=== PATIENT | female | born 1980 | race Two or more races ===

== ENCOUNTER 2019-11-28 08:39 | Emergency (ER) | payer SELFPAY ==
[~2019-11-28] VITALS: Ht 162.6 cm; Wt 70.8 kg
[2019-11-28] MEDS ORDERED: Omnipaque-300 100ml vial INJ ONE (09:00)
[2019-11-28] MEDS ORDERED: dexAMETHasone 10mg/ml Inj IV ONE (09:00)
[2019-11-28] MEDS ORDERED: cefTRIAXone 2 GM in NS 55 ML IVPB ONE (09:00)
[2019-11-28] MEDS ORDERED: Clindamycin 600mg 50 ML IVPB ONE (09:00)
--- NOTE | 2019-11-28 09:00 | Emergency Room Report ---
History of Present Illness General Chief Complaint: Earache Source: Patient Present Illness HPI Disclaimer: Please note that this report is being documented using DRAGON technology. This can lead to erroneous entry secondary to incorrect interpretation by the dictating instrument. HPI: 36-year-old female presents for evaluation of right-sided ear pain. Patient reports 2 days of pain in the right ear without changes in hearing, vertigo, fever or chills. She now notes tenderness over the right side of the jaw extending down to the submandibular region on the right side. Pain with opening her jaw. Denies difficulty swallowing or tolerating her secretions. Denies wheezing, stridor, difficulty breathing. Denies recent fever or chills. Denies nausea, vomiting, diarrhea, chest pain, cough PMH: Denies PSH: Reviewed Allergies: Denied Social Hx: Denied drug or alcohol abuse Allergies: Coded Allergies: No Known Allergies (Unverified , 11/28/19) COVID-19 Screening Contact w/high risk pt: No Recent Travel to affected area: No Experienced COVID-19 symptoms?: No COVID-19 Testing performed [employer]: No Patient History Last Menstrual Period: 11/22/19 Now: No Nursing Documentation-PMH Past Medical History: No Stated History Review of Systems All Other Systems: negative except mentioned in HPI Physical Exam Vital Signs Date Time Temp Pulse Resp B/P (MAP) Pulse Ox O2 Delivery O2 Flow Rate FiO2 11/28/19 08:41 99.7 92 20 142/91 (108) 97 General: Awake and alert, appears mildly uncomfortable HEENT: NC/AT. EOMI. PERRLA. Tympanic membranes are pearly simon, nonbulging with clear landmarks. Slight hyperemia in the right external canal but no edema no exudate. Left external auditory canal is normal in appearance without edema, erythema or drainage. The uvula is slightly deviated to the left with swelling of the right peritonsillar region. The right tonsil is erythematous with mild exudate. Pharynx is erythematous. No tenderness over the parotids. No trismus. Tolerating secretions. Speaking clearly and without muffled voice. Neck: Tender palpation with palpable mass in the right submandibular region. No overlying skin changes. Cardiovascular: RRR. S1 and S2 normal. No murmur appreciated Resp: Normal work of breathing. No cough, wheezing or crackles appreciated Abdomen: Abdomen is soft, nondistended. Nontender Skin: Intact. No abrasions, laceration or rash over the exposed skin MSK: Normal tone and bulk. Moving all extremities. No obvious deformity. Neuro: Awake and alert. Mentating appropriately. Procedures Critical Care Time Critical Care Time Total critical care time: Approximately 31 minutes Due to a high probability of clinically significant, life threatening deterioration, the patient required the highest level of preparedness to intervene emergently and I personally spent this critical care time directly and personally managing the patient. This critical care time included obtaining a history, examining the patient, pulse oximetry, ordering and reviewing studies , ordering treatments, evaluating response to treatment and updating management plan as needed, frequent reassessment and discussion with other providers as well as arranging for ultimate disposition. This critical to care time was performed to assess and manage the high probability of life-threatening deterioration that could result in multiorgan failure. This critical care time is separate from the separately billable procedures and treating other patients. Incision and Drainage Incision and Drainage : Site: Right peritonsillar abscess Wound Location: other Additional Procedure Procedure Narrative Procedure note for aspiration of peritonsillar abscess. Location: Right peritonsillar abscess Procedure: Patient was placed on monitor given suction to accommodate her secretions. Hurricaine spray was used as a topical anesthetic after which 2 cc of 1% lidocaine with epinephrine was used for local anesthesia. An 18-gauge with the protective covering cut to 1 cm was inserted into the superior pillar of the right tonsil aspirate approximately 3 cc of foul-smelling purulent material with mild blood streaking. No pulsatile mass. No significant bleeding. Patient tolerated the procedure well. Sample sent for culture and Gram stain. No complications Signature: Electronically signed by Dr. William Hancock Medical Decision Making Diagnostic Impression: Primary Impression: Pharyngitis Additional Impression: Peritonsillar abscess ER Course 39-year-old female presenting for evaluation of right-sided ear and neck pain for the past 2 days. She arrives afebrile though appears uncomfortable. No trismus but there is right-sided peritonsillar swelling and mild uvular deviation concerning for peritonsillar abscess. Also on differential is pharyngitis, laryngitis, proctitis, Ludewig's angina to name a few. Will obtain cultures, broad labs, CT scan to further evaluate. Will treat empirically with IV antibiotics and dexamethasone. 1250: Labs show a slight increase in white count at 14.2 with a neutrophil predominance. Chemistry lactic acid within normal limits. No evidence of sepsis at this time. CT scan confirmed peritonsillar abscess and signs of pharyngitis. Aspiration was performed by me at bedside. Please see separate procedure section of this note for full details. Tolerate procedure well without complications. Airway is patent and pain is improving. Patient will be monitored in the ED and then p.o. challenged. Will discharge home on Augmentin for 10 days. Discussed reasons to return to the emergency department. She understands and agrees with this treatment plan. Laboratory Tests Test 11/28/19 09:00 White Blood Count 14.2 K/UL (4.8-10.8) H Red Blood Count 4.64 M/UL (4.20-5.40) Hemoglobin 14.0 G/DL (12.0-16.0) Hematocrit 43.1 % (37.0-47.0) Mean Corpuscular Volume 93 FL (80-99) Mean Corpuscular Hemoglobin 30.1 PG (27.0-31.0) Mean Corpuscular Hemoglobin Concent 32.3 G/DL (32.0-36.0) Red Cell Distribution Width 11.2 % (11.6-14.8) L Platelet Count 338 K/UL (150-450) Mean Platelet Volume 6.7 FL (6.5-10.1) Neutrophils (%) (Auto) 83.7 % (45.0-75.0) H Lymphocytes (%) (Auto) 9.3 % (20.0-45.0) L Monocytes (%) (Auto) 6.3 % (1.0-10.0) Eosinophils (%) (Auto) 0.4 % (0.0-3.0) Basophils (%) (Auto) 0.4 % (0.0-2.0) Urine HCG, Qualitative Negative (NEGATIVE) Sodium Level 140 MMOL/L (136-145) Potassium Level 3.6 MMOL/L (3.5-5.1) Chloride Level 104 MMOL/L (98-107) Carbon Dioxide Level 26 MMOL/L (21-32) Anion Gap 10 mmol/L (5-15) Blood Urea Nitrogen 11 mg/dL (7-18) Creatinine 0.9 MG/DL (0.55-1.30) Estimated Glomerular Filtration Rate > 60 mL/min (>60) Glucose Level 101 MG/DL (74-106) Lactic Acid Level 0.70 mmol/L (0.4-2.0) Calcium Level 9.3 MG/DL (8.5-10.1) CT/MRI/US Diagnostic Results CT/MRI/US Diagnostic Results : Impression CLINICAL HISTORY: right ear and worst on right jaw for last 2 days. per pt, unable to chew but ok to drink fluid. denies any breathing problem. able to open her mouth. no fever at this time. TECHNIQUE: Axial computed tomography images of the neck with intravenous contrast. CTDI is 6.9 mGy and DLP is 198.2 mGy-cm. One or more of the following dose reduction techniques were used: automated exposure control, adjustment of the mA and/or kV according to patient size, use of iterative reconstruction technique. COMPARISON: No relevant prior studies available. FINDINGS: Oropharynx: 2 x 3.2 x 3.7 cm fluid collection with rim enhancement in the right tonsils consistent with a tonsillar abscess and tonsillitis. Swelling extends superiorly to the level of the nasopharynx and right eustachian tube. Moderate effacement of the pharynx. Hypopharynx: Right pharyngeal soft tissue thickening extending to the right epiglottis.. Larynx: Unremarkable. Trachea: Unremarkable. Retropharyngeal space: Unremarkable. Submandibular/parotid glands: Slight prominence of the right submandibular duct. Parotid glands unremarkable. Thyroid: Unremarkable. No enlarged or calcified nodules. Bones/joints: No acute fracture. Soft tissues: Unremarkable. Vasculature: No acute findings. Lymph nodes: Enhancing slightly prominent right cervical lymph nodes. Sinuses: Mild ethmoid sinus mucosal thickening. Lung apices: Unremarkable as visualized. IMPRESSION: 1. 2 x 3.2 x 3.7 cm fluid collection with rim enhancement in the right tonsils consistent with a tonsillar abscess and tonsillitis. Swelling extends superiorly to the level of the nasopharynx and right eustachian tube. Moderate effacement of the pharynx. 2. Right pharyngeal soft tissue thickening extending to the right epiglottis. Airway patent. <MYCVCSECTION> Communications: 11/28/19 11:41 Verify Receipt Verified receipt with Leatha, given to Karissa FORD on 11/27 11:41 (-07:00) Dictated By: JANET TURNER M.D. Electronically Signed By: JANET TURNER M.D. Signed Date/Time 11/28/19 1123 CC: William Hancock MD Last Vital Signs Date Time Temp Pulse Resp B/P (MAP) Pulse Ox O2 Delivery O2 Flow Rate FiO2 11/28/19 08:41 99.7 92 20 142/91 (108) 97 Disposition: HOME, SELF-CARE Condition: Stable Scripts Ibuprofen* (MOTRIN*) 600 Mg Tablet 600 MG ORAL Q8H PRN for FOR PAIN, #30 TAB 0 Refills Prov: William Hancock MD 11/28/19 Amoxicillin/Potassium Clav 875-125* (AUGMENTIN 875-125 TABLET*) 1 Each Tablet 1 TAB ORAL TWICE A DAY for 10 Days, #20 TAB Prov: William Hancock MD 11/28/19 William Hancock MD Nov 28, 2019 09:00
--- NOTE | 2019-11-28 09:00 | NUR ---
ED Nurse Note: pt walked in to ED due to pain on right ear and worst on right jaw for last 2 days. per pt, unable to chew but ok to drink fluid. denies any breathing problem. able to open her mouth. no fever at this time. AAO x4. respirations even and non-labored noted. no skin problem. ambulatory with steady gait. lab sent. will give meds as ordered. will cont to monitor.
[2019-11-28] MEDS ORDERED: Morphine Sulfate 2mg/ml Inj(IV/IM USE ONLY) IVP ONE (09:15)
[2019-11-28 09:21] LABS: BASOPHILS % (AUTO) 0.4 % (0.0-2.0); EOSINOPHILS % (AUTO) 0.4 % (0.0-3.0); HEMATOCRIT 43.1 % (37.0-47.0); LYMPHOCYTES % (AUTO) 9.3 % (20.0-45.0); MEAN CORPUSCULAR VOLUME 93 FL (80-99); MONOCYTES % (AUTO) 6.3 % (1.0-10.0); NEUTROPHILS % (AUTO) 83.7 % (45.0-75.0); PLATELET COUNT 338 K/UL (150-450); RED BLOOD COUNT 4.64 M/UL (4.20-5.40); RED CELL DISTRIBUTION WIDTH 11.2 % (11.6-14.8); WHITE BLOOD COUNT 14.2 K/UL (4.8-10.8)
[2019-11-28 09:27] LABS: ANION GAP 10 mmol/L (5-15); BLOOD UREA NITROGEN 11 mg/dL (7-18); CALCIUM 9.3 MG/DL (8.5-10.1); CARBON DIOXIDE 26 MMOL/L (21-32); CHLORIDE 104 MMOL/L (98-107); CREATININE 0.9 MG/DL (0.55-1.30); POTASSIUM 3.6 MMOL/L (3.5-5.1); SODIUM 140 MMOL/L (136-145)
--- NOTE | 2019-11-28 09:46 | NUR ---
ED Nurse Note: Patient taken to CT scan in wheelchair.
--- NOTE | 2019-11-28 09:56 | NUR ---
ED Nurse Note: Patient returned from CT scan. IV site to LAC remained intact without redness, swelling or tenderness.
[2019-11-28 10:03] VITALS: BP 106/69
[2019-11-28] MEDS ORDERED: Lidocaine 1% 10mg/ml/Epi 0.005mg/ml 30ml vial INJ ONE (10:15)
[2019-11-28] MEDS ORDERED: Hurricaine 20% Spray ORO ONE ×2 (10:15→10:17)
[2019-11-28] MEDS ORDERED: Lidocaine 1% Plain 30 ml INJ ONE (10:17)
[2019-11-28] MEDS ORDERED: Lidocaine 1% 10mg/ml/EPI 0.01mg/ml 30ml INJ ONE (10:20)
--- NOTE | 2019-11-28 10:29 | NUR ---
ED Nurse Note: Moved patient to room 9. Placed patient on service line bus cleaner. Suction/oxygen ready at bedside.
--- NOTE | 2019-11-28 10:45 | NUR ---
HAND-OFF: Report given to CONCHA Spears.
--- NOTE | 2019-11-28 10:59 | NUR ---
ED Nurse Note: Got report from Se Efren RN. Patient AAO x4, VSS at this time. Dr. Hancock at bed side explaining I&D procedure to the patient. Patient verbalised understanding.
--- NOTE | 2019-11-28 11:11 | Diagnostic Imaging Report ---
EXAM: CT Temporal Bones Without Intravenous Contrast CLINICAL HISTORY: right ear and worst on right jaw for last 2 days. per pt, unable to chew but ok to drink fluid. denies any breathing problem. able to open her mouth. no fever at this time. TECHNIQUE: Axial computed tomography images of the temporal bones without intravenous contrast. CTDI is 6.9 mGy and DLP is 198.2 mGy-cm. One or more of the following dose reduction techniques were used: automated exposure control, adjustment of the mA and/or kV according to patient size, use of iterative reconstruction technique. COMPARISON: No relevant prior studies available. FINDINGS: Right ossicles and middle ear: Unremarkable. Right cochlea: Unremarkable. Right vestibule: Unremarkable. Right semicircular canals: Unremarkable. Right vestibular and cochlear aqueducts: Unremarkable. Right facial nerve canal: Unremarkable. Right internal auditory canal: Unremarkable. Right external auditory canal: Unremarkable. Right carotid canal: Unremarkable. Right jugular foramen: Unremarkable. Right mastoid air cells: Unremarkable. Right temporomandibular joint: Unremarkable. Left ossicles and middle ear: Unremarkable. Left cochlea: Unremarkable. Left vestibule: Unremarkable. Left semicircular canals: Unremarkable. Left vestibular and cochlear aqueducts: Unremarkable. Left facial nerve canal: Unremarkable. Left internal auditory canal: Unremarkable. Left external auditory canal: Unremarkable. Left carotid canal: Unremarkable. Left jugular foramen: Unremarkable. Left mastoid air cells: Unremarkable. Left temporomandibular joint: Unremarkable. Bones/joints: No acute fracture. Soft tissues: Unremarkable. Sinuses: Mild ethmoid sinus mucosal thickening. IMPRESSION: No acute findings in the temporal bones.
--- NOTE | 2019-11-28 11:16 | NUR ---
ED Nurse Note: consent was signed by patient
--- NOTE | 2019-11-28 11:23 | Diagnostic Imaging Report ---
EXAM: CT Neck With Intravenous Contrast CLINICAL HISTORY: right ear and worst on right jaw for last 2 days. per pt, unable to chew but ok to drink fluid. denies any breathing problem. able to open her mouth. no fever at this time. TECHNIQUE: Axial computed tomography images of the neck with intravenous contrast. CTDI is 6.9 mGy and DLP is 198.2 mGy-cm. One or more of the following dose reduction techniques were used: automated exposure control, adjustment of the mA and/or kV according to patient size, use of iterative reconstruction technique. COMPARISON: No relevant prior studies available. FINDINGS: Oropharynx: 2 x 3.2 x 3.7 cm fluid collection with rim enhancement in the right tonsils consistent with a tonsillar abscess and tonsillitis. Swelling extends superiorly to the level of the nasopharynx and right eustachian tube. Moderate effacement of the pharynx. Hypopharynx: Right pharyngeal soft tissue thickening extending to the right epiglottis.. Larynx: Unremarkable. Trachea: Unremarkable. Retropharyngeal space: Unremarkable. Submandibular/parotid glands: Slight prominence of the right submandibular duct. Parotid glands unremarkable. Thyroid: Unremarkable. No enlarged or calcified nodules. Bones/joints: No acute fracture. Soft tissues: Unremarkable. Vasculature: No acute findings. Lymph nodes: Enhancing slightly prominent right cervical lymph nodes. Sinuses: Mild ethmoid sinus mucosal thickening. Lung apices: Unremarkable as visualized. IMPRESSION: 1. 2 x 3.2 x 3.7 cm fluid collection with rim enhancement in the right tonsils consistent with a tonsillar abscess and tonsillitis. Swelling extends superiorly to the level of the nasopharynx and right eustachian tube. Moderate effacement of the pharynx. 2. Right pharyngeal soft tissue thickening extending to the right epiglottis. Airway patent. <MYCVCSECTION> Communications: 11/28/19 11:41 Verify Receipt Verified receipt with Leatha, given to Karissa FORD on 11/27 11:41 (-07:00)
--- NOTE | 2019-11-28 11:30 | NUR ---
ED Nurse Note: Dr. Hancock performed I&D of right tonsils, 15mL of pus was drained. Patient tolerat procedure well, will continue to monitor.
[2019-11-28] MEDS ORDERED: AUGMENTIN 875-1 EAC1 ORAL (12:53)
[2019-11-28 12:57] VITALS: BP 112/69
[2019-11-28] MEDS ORDERED: IBUPROFEN600 M1 ORAL (13:06)
--- NOTE | 2019-11-28 13:30 | NUR ---
ED Nurse Note: Patient was able to swalow juice without any complications, will provide solid food later.
--- NOTE | 2019-11-28 14:00 | NUR ---
ED Nurse Note: [place] was provioded, patient was able to finish 06/04. Stated can freely swalow, denyed pain.
[2019-11-28 14:39] VITALS: BP 112/69
--- NOTE | 2019-11-28 14:41 | NUR ---
ER DISCHARGE NOTE: Patient is cleared to be discharged per ERMD, pt is aox4, on room air, with stable vital signs. pt was given dc and prescription instructions, pt was able to verbalize understanding, pt id band and iv site removed without complications. pt is able to ambulate with steady gait. pt took all belongings.
== END 2019-11-28 14:41 | disposition home or self-care (01) ==
LOC: EMR 09:10
DX: J36 Peritonsillar abscess (principal); J02.9 Acute pharyngitis, unspecified; R68.89 Other general symptoms and signs
CPT/HCPCS: 10060; 36415; 70481; 70491; 80048; 81025; 83605; 85025; 87040; 96365; 96367; 96375; 99291; J0696; J2270; Q9967; S0077